=== PATIENT | male | born 1960 | race Two or more races ===

== ENCOUNTER 2022-11-29 20:45 | Emergency (ER) | payer BC ==
[~2022-11-29] VITALS: Ht 170.2 cm; Wt 74.8 kg
--- NOTE | 2022-11-29 21:54 | NUR ---
Dr. Amaya evaluating patient at bedside. MSE in progress.
[2022-11-29] MEDS ORDERED: TDAP DIPH,PERTUSS,TET VAC/PF 0.5 ML DISP.SYRIN IM ONE ×2 (22:00→22:43)
--- NOTE | 2022-11-29 22:16 | NUR ---
Xray at bedside
--- NOTE | 2022-11-29 22:24 | NUR ---
Dr. Amaya at bedside performing suture on chin.
--- NOTE | 2022-11-29 22:45 | NUR ---
After Dr. Amaya performed chin suture patient attempted to get out of bed to urinate. Patient had a syncopal episode and fell back into the bed. Patient was placed in [facility]. Dr. Amaya was at bedside.
[2022-11-29] MEDS ORDERED: IV NS 1000 ML 1,000 ML IV ONE (23:00)
[2022-11-29 23:05] LABS: HEMATOCRIT 36.6 % (36.7-47.1); MEAN CORPUSCULAR HEMOGLOBIN 28.9 uug (23.8-33.4); MEAN CORPUSCULAR VOLUME 86.5 fL (73.0-96.2); PLATELET COUNT (AUTO) 220 K/uL (152-348)
[2022-11-29 23:18] LABS: CARBON DIOXIDE 26 mmol/L (21-32); CHLORIDE 100 mmol/L (98-107); CREATININE 1.2 mg/dL (0.6-1.3); GLUCOSE 260 mg/dL (74-106); POTASSIUM 3.7 mmol/L (3.5-5.1); UREA NITROGEN, BLOOD 17 mg/dL (7-18)
--- NOTE | 2022-11-29 23:22 | NUR ---
Patients at bedside.
--- NOTE | 2022-11-29 23:35 | NUR ---
Patient AOx4, vital signs are stable. Infusing 1L 0.9%NS per Dr. Amaya's order.
[2022-11-30 00:14] LABS: *BILIRUBIN,URIN NEGATIVE (NEGATIVE); *CLARITY,URINE CLEAR (CLEAR); *COLOR,URINE YELLOW (YELLOW); *KETONES,URINE NEGATIVE (NEGATIVE); *UROBILINOGEN,URINE 0.2 E.U./dl (NORMAL); LEUKOCYTE ESTERASE ,URINE NEGATIVE (NEGATIVE); NITRITE, URINE NEGATIVE (NEGATIVE); PH,URINE 5.5 (5.0-8.0); UGLUCOSE NEGATIVE (NEGATIVE)
[2022-11-30 00:15] LABS: *BLOOD, URINE TRACE (NEGATIVE)
[2022-11-30] MEDS ORDERED: BLOO-1731 MC (00:16)
--- NOTE | 2022-11-30 00:35 | NUR ---
Patient discharged to home in stable condition. Written and verbal after care instructions given. Patient verbalizes understanding of instructions. Stressed follow up or return to ER for worsening s/s.
[2022-11-30 00:47] LABS: BACTERIA,URINE NONE SEEN /HPF (NONE SEEN); RBC,URINE NONE SEEN /HPF (0-3); SQUAMOUS EPITHELIAL CELL,UR FEW /HPF (NONE SEEN); WBC,URINE NONE SEEN /HPF (0-3)
[2022-11-30 00:56] VITALS: BP 145/74
== END 2022-11-30 00:35 | disposition home or self-care (01) ==
LOC: ER 20:45
DX: S01.81XA Laceration without foreign body of other part of head, initial encounter (principal); W01.0XXA Fall on same level from slipping, tripping and stumbling without subsequent striking against object, initial encounter; Y92.89 Other specified places as the place of occurrence of the external cause; R55 Syncope and collapse; E78.5 Hyperlipidemia, unspecified; E11.9 Type 2 diabetes mellitus without complications; Z79.84 Long term (current) use of oral hypoglycemic drugs; I10 Essential (primary) hypertension; Z79.899 Other long term (current) drug therapy; D72.829 Elevated white blood cell count, unspecified
CPT/HCPCS: 99285; 96360; 71045; 12013; 80048; 81001; 83735; 85025; 85379; 84484; 36415; 70110; 90715; 90471; 93005; J7040; A4663